=== PATIENT | male | born 1985 | race Caucasian/White ===

== ENCOUNTER 2021-05-17 12:15 | Outpatient (REF) | payer MEDICARE, SELFPAY ==
[2021-05-17 14:42] LABS: Alanine Aminotransferase 14 U/L (0-40); Albumin Level 4.5 g/dL (3.5-5.0); Alkaline Phosphatase 69 U/L (39-117); Anion Gap 12 (12-20); Aspartate Amino Transferase 17 U/L (5-37); Bilirubin Total 0.5 mg/dL (0.0-1.0); Blood Urea Nitrogen 12 mg/dL (9-16); Calcium 9.1 mg/dL (8.4-10.2); Carbon Dioxide 29 mmol/L (22-29); Chloride 104 mmol/L (96-108); Cholesterol 141 mg/dL; Estimated Glomerular Filt Rate > 60; Glucose Fasting 98 mg/dL (60-99); HDL Cholesterol 38 mg/dL; LDL Cholesterol Calculated 91 mg/dl; Potassium 4.2 mmol/L (3.3-5.1); Sodium 141 mmol/L (135-145); Total Protein 6.6 g/dL (6.5-8.0); Triglycerides 61 mg/dL
[2021-05-17 15:02] LABS: TSH reflex Free T4 1.24 uIU/mL (0.32-4.0)
[2021-05-17 15:04] LABS: Syphilis Screen Nonreactive (Nonreactive)
[2021-05-19 08:54] LABS: HBsAGNum1 0.16 S/CO (0.00-0.99); Hepatitis B Surface Antigen Negative (Negative); ~HepC Num1 0.08 S/CO (0.00-0.79); ~Hepatitis C Antibody Nonreactive (Nonreactive)
[2021-05-19 09:21] LABS: HBc Num1 0.08 S/CO (0.00-0.79); Hepatitis B Core Antibody Nonreactive (Nonreactive); ~Hepatitis B Surface Antibody REACTIVE (Nonreactive)
== END 2021-05-17 12:16 | disposition home or self-care (01) ==
LOC: HO.WFDLDS 12:15
PROVIDERS: Visit Provider Family Medicine
DX: Z00.00 Encounter for general adult medical examination without abnormal findings (principal); Z11.59 Encounter for screening for other viral diseases
CPT/HCPCS: 36415; 80053; 80061; 84443; 86704; 86706; 86780; 86803; 87340

== ENCOUNTER 2021-05-30 10:58 | Outpatient (RCR) | payer MEDICARE, SELFPAY | END 2021-07-18 07:33 | disposition home or self-care (01) | LOC: HO.PTWFD 10:58 | PROVIDERS: PCP Family Medicine; Visit Provider Family Medicine | DX: M54.50 Low back pain, unspecified (principal) | CPT/HCPCS: 97110; 97161; 97535 ==

== ENCOUNTER 2022-11-20 12:11 | Outpatient (REF) | payer OTHER, SELFPAY ==
[2022-11-20 14:04] LABS: MANUAL DIFF FLAG NO
[2022-11-20 14:16] LABS: Basophils Absolute Auto 0.1 X10*3/uL (0.0-0.2); Basophils Percent Auto 0.5 % (0-2); Eosinophils Absolute Auto 0.3 X10*3/uL (0.0-0.4); Eosinophils Percent Auto 2.6 % (0-4); Hemoglobin 13.4 g/dl (14.0-18.0); Imm Gran Abs Auto 0.12 X10*3/uL (0.00-0.03); Imm Gran Pct Auto 1.1 % (0.0-0.4); Lymphocytes Absolute Auto 2.6 X10*3/uL (1.2-4.9); Lymphocytes Percent Auto 24.1 % (20-40); Mean Corpuscular HGB Conc 31.9 g/dl (31.0-36.0); Mean Corpuscular Hemoglobin 26.9 pg (27.0-33.0); Mean Corpuscular Volume 84.2 fL (80.0-98.0); Mean Platelet Volume 10.4 fL (9.4-12.4); Monocytes Absolute Auto 0.8 X10*3/uL (0.1-1.2); Monocytes Percent Auto 7.1 % (2-11); Neutrophils Percent Auto 64.6 % (45-73); Platelet Count 289 X10*3/uL (160-400); Red Blood Count 4.99 X10*6/uL (4.60-5.80); Red Cell Distribution Width 13.6 % (11.0-16.0); White Blood Count 10.8 X10*3/uL (4.8-10.8)
[2022-11-20 14:20] LABS: Appearance Urine Cloudy; Color Urine Yellow; Glucose Urine UA Negative (Negative); Leukocyte Esterase Urine Negative (Negative); Nitrite Urine Negative (Negative); PH 8.5 (5.0-9.0); Specific Gravity - Urine 1.015 (1.005-1.025); Urine Blood Negative (Negative); Urine Ketones Negative (Negative); Urine Protein Negative (Neg-Trace)
[2022-11-20 14:26] LABS: Alanine Aminotransferase 33 U/L (0-40); Albumin Level 4.5 g/dL (3.5-5.0); Alkaline Phosphatase 69 U/L (39-117); Anion Gap 10 (12-20); Aspartate Amino Transferase 22 U/L (5-37); Bilirubin Total 0.7 mg/dL (0.0-1.0); Blood Urea Nitrogen 11 mg/dL (9-16); Calcium 9.2 mg/dL (8.4-10.2); Carbon Dioxide 29 mmol/L (22-29); Chloride 106 mmol/L (96-108); Cholesterol 138 mg/dL; Estimated Glomerular Filt Rate > 60; Glucose Fasting 78 mg/dL (60-99); HDL Cholesterol 44 mg/dL; LDL Cholesterol Calculated 73 mg/dl; Potassium 4.1 mmol/L (3.3-5.1); Sodium 141 mmol/L (135-145); Total Protein 6.7 g/dL (6.5-8.0); Triglycerides 107 mg/dL
[2022-11-20 14:43] LABS: TSH reflex Free T4 1.48 uIU/mL (0.32-4.0)
[2022-11-20 15:52] LABS: CT PCR NOT DETECTED (Not Detect.); NG PCR NOT DETECTED (Not Detect.)
[2022-11-21 04:13] LABS: Syphilis Screen Nonreactive (Nonreactive)
[2022-11-21 04:33] LABS: HBS Num1 71.65 mIU/mL (0-7.99); HBc Num1 0.12 S/CO (0.00-0.79); HBsAGNum1 0.39 S/CO (0.00-0.99); HIV AB/AG Nonreactive (Nonreactive); HIV Num 1 0.05 S/CO (0.00-0.99); Hepatitis B Core Antibody Nonreactive (Nonreactive); Hepatitis B Surface Antigen Negative (Negative); ~HepC Num1 0.15 S/CO (0.00-0.79); ~Hepatitis B Surface Antibody REACTIVE (Nonreactive); ~Hepatitis C Antibody Nonreactive (Nonreactive)
== END 2022-11-20 12:12 | disposition home or self-care (01) ==
LOC: HO.WFDLDS 12:11
PROVIDERS: Visit Provider Family Medicine
DX: Z00.00 Encounter for general adult medical examination without abnormal findings (principal); Z11.3 Encounter for screening for infections with a predominantly sexual mode of transmission
CPT/HCPCS: 0353U; 36415; 80053; 80061; 81003; 84443; 85025; 86704; 86706; 86780; 86803; 87340; 87389

== ENCOUNTER 2023-02-12 09:44 | Outpatient (AMB) | payer OTHER, SELFPAY ==
[2023-02-12 09:53] VITALS: BP 120/64; PULSE 63; RESP 12; TEMP 36.7; O2SAT 98; BMI 21.3
--- NOTE | 2023-02-12 09:53 | MHC.PC.OV ---
Vital Signs 02/12/23 09:53 Height 5 ft 11 in Weight 153 lb BMI 21.3 BP 120/64 Blood Pressure Location Lt brachial Position Sitting Respiration 12 Pulse 63 Pulse Source Pulse Oximeter Temp 98.1 F Temp Source Temporal Artery Scan Pulse Oximetry (%) 98 Oxygen Delivery Method Room Air Intake Visit Reasons: Pain in Right knee Intake Note: Patient states that before the knee pain he was having stiffening pains that felt like a zain horse and has been happening for 2-3 months. Patient states that before the knee pain his knees constantly cracked, and when he was horseplaying in [place] ([place]restling) he heard his knee crack and its been hurting since. Patient states that knee pain happened 4 days ago and hes been limping since. 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 Patient states he has labs he would also like to go over. Train Station Agent Required: No Accompanied by: Self / Same As Patient Allergies No Known Allergies Allergy (Verified 02/12/23 10:18) Tobacco use date assessed: 08/07/22 Dental Screening Dental Screen Date: 02/12/23 Did you have a dental visit in the last 12 months?: Yes Did you have a dental problem in the last 6 months where you did not have access to dental care?: No Was dental information given to patient?: Patient has dentist HPI HPI Comments History of Present Illness Details 37-year-old male presents with complaints of right knee pain. He notes that he was horse playing 4 days ago and his friend fell on his knee. He states he heard a cracking sound in the knee and immediately started experiencing pain. He notes he felt the knee popped in and out. He also notes he has been limping. He notes the pain intensifies with weight bearing. He denies tingling or numbness. He has been taking Tylenol without improvement. He also uses a knee brace with minimal improvement. He also reports persistent cramps to the posterior right knee for the past 2 months. 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 Mario Kruger, Noelle Collins, Scar Jay and colleagues, with an educational grecia from [employer]. Review of Systems Const Details: Const Denies chills, Denies fatigue, Denies fever(s), Denies headache(s) and Denies weakness ENT Denies dizziness and Denies headache(s) Card Denies chest pain, Denies lightheadedness, Denies dyspnea and Denies other (Palpitations) Resp Denies cough, Denies dyspnea, Denies wheezing and Denies other ( shortness of breath) GI Denies abdominal pain, Denies melena, Denies hematochezia, Denies change in bowel habits, Denies dyspepsia and Denies nausea Denies hematuria and Denies dysuria Musc Reports as per HPI Skin/Breast Denies rash, Denies unusual bruising and Denies wounds Neuro Reports abnormal gait, Denies dizziness, Denies headache(s), Denies memory loss, Denies numbness, Denies Sensory deficit (Neuro), Denies tingling and Denies weakness Psych Denies anxiety, Denies depression, Denies memory loss Endo Denies cold intolerance, Denies fatigue, Denies heat intolerance, Denies polydipsia and Denies polyuria Aller/Immun Denies wheezing Physical exam (Primary Care) Vital Signs: Last Vital Signs Temp 98.1 F 02/12/23 09:53 Pulse 63 02/12/23 09:53 Resp 12 02/12/23 09:53 BP 120/64 02/12/23 09:53 Pulse Ox 98 02/12/23 09:53 Oxygen Delivery Method Room Air 02/12/23 09:53 BMI result Body Mass Index 21.3 Tobacco/Smoking Status: Tobacco use Status Tobacco use date assessed 08/07/22 02/12/23 10:05 Patient Tobacco Use Status Former Tobacco user 02/12/23 10:05 Tobacco use type Cigar 02/12/23 10:05 e-Cigarette/Vaping Use Currently Using 02/12/23 10:05 Thrive Assessment: Date of Thrive Assessment Date Thrive assessed 12/06/21 02/12/23 10:05 Const Other: General: no acute distress and well developed Nutritional Appearance: well nourished Orientation/consciousness: patient oriented x3 HENMT Head: Yes normocephalic and Yes atraumatic Eyes General: appearance normal, both eyes and all related structures Pupils: Equal, round and reactive pupils present EOM: EOMs intact bilaterally Resp Effort & Inspection: normal respiratory effort Auscultation: clear to auscultation bilaterally Cardio Rate: regular rate Rhythm: regular rhythm Heart sounds: S1 normal heart sound present, S2 normal heart sound present, no gallops, no murmurs and no rubs GI Palpation (GI): No Abdominal aortic bruit present, Soft to palpation, nontender, No hepatosplenomegaly present and No Rebound tenderness present Auscultation: normal bowel sounds General: Yes no CVA tenderness Back/Spine/Pelvis Back: no CVA tenderness Cervical Spine: cervical ROM normal and No Cervical spine tenderness Thoracic/Lumbar Spine: thoraco-lumbar ROM normal, No pain with thoraco-lumbar ROM, No thoracic spinal tenderness and No lumbar spinal tenderness Extrem General: Yes normal to inspection, No edema and No calf tenderness Right patella tenderness with palpation and pressure Skin General: warm and dry. Normal skin color. Normal skin turgor Lesions: no lesions Rashes: no rashes Trauma: no lacerations or abrasions Wounds: no wounds Nails: normal Neuro General: patient oriented x3, gait normal and no focal neuro deficit Cranial nerves: Yes Equal, round and reactive pupils present Cognition (Neuro): normal cognition Gait exam (Neuro): Slightly unsteady gait Sensory Exam: No Sensory deficit (Neuro) Psych Appearance: grossly normal Affect: normal affect Attitude: cooperative Thought process: Normal thought process present Assessment and Plan Assessment & Plan (1) Right knee pain: Code(s): M25.561 - Pain in right knee Plan: Right patella tenderness with palpation and pressure Likely patellofemoral pain syndrome Naproxen ordered. Take as prescribed X-ray ordered Warm/cold compresses encouraged May continue to wear knee brace for walking Follow-up with worsening or new symptoms Verbalized understanding and agreed with treatment plan. (2) Cramps of right lower extremity: Code(s): R25.2 - Cramp and spasm Plan: Naproxen as prescribed Warm/cool compresses encouraged Labs ordered Return with worsening or new symptoms Verbalized understanding and agreed with treatment plan. Orders: Orders Basic Metabolic Panel Today R25.2 - Cramp and spasm Magnesium Today R25.2 - Cramp and spasm Complete Blood Count no Diff Today R25.2 - Cramp and spasm XR knee RT 2V Today M25.561 - Pain in right knee Medications: New naproxen 500 mg PO BID PRN 60 tabs 0RF pain 30 days Coding Level of Care Code Est Pt Level 3 (14851) Diagnoses Right knee pain M25.561 Cramps of right lower extremity R25.2 Time Spent (min) 25
== END 2023-02-12 10:42 | disposition home or self-care (01) ==
PROVIDERS: PCP Family Medicine; Visit Provider Nurse Practitioner Family
DX: M25.561 Pain in right knee (principal); R25.2 Cramp and spasm
CPT/HCPCS: 99213

== ENCOUNTER 2024-01-09 15:23 | Outpatient (AMB) | payer OTHER, SELFPAY ==
--- NOTE | 2024-01-09 15:29 | A.OFFPC_ITS ---
Vital Signs 01/09/24 15:30 Height 5 ft 11 in Weight 159 lb 6 oz BMI 22.2 BP 106/68 Blood Pressure Location Rt brachial Position Sitting Respiration 14 Pulse 71 Pulse Source Pulse Oximeter Temp 97 F Temp Source Temporal Artery Scan Pulse Oximetry (%) 99 Oxygen Delivery Method Room Air Intake Visit Reasons: PE Intake Note: Patient states that eczema has been getting worse band would like some type of cream prescribed. Electronic Train Control Technician Required: No Accompanied by: Self / Same As Patient Allergies No Known Allergies Allergy (Verified 01/09/24 15:40) Medication List - Last Reconciled 01/09/24 by Virgilio Sapp MD No Known Home Meds Tobacco use date assessed: 01/09/24 Dental Screening Dental Screen Date: 01/09/24 Did you have a dental visit in the last 12 months?: Yes Did you have a dental problem in the last 6 months where you did not have access to dental care?: No Was dental information given to patient?: Patient has dentist HPI PE HPI Details 38 y/o male presents for a CPE with f/u labs and health maintenance. No recent labs to review. Has complaints of eczema. Has complaints of cramps on back of his calf. 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 1. Little interest or pleasure in doing things: not at all 2. Feeling down, depressed, or hopeless: not at all 3. Trouble falling or staying asleep, or sleeping too much: not at all 4. Feeling tired or having little energy: not at all 5. Poor appetite or overeating: not at all 6. Feeling bad about yourself - or that you are a failure or have let yourself or your family down: not at all 7. Trouble concentrating on things, such as reading the newspaper or watching television: not at all 8. Moving or speaking so slowly that other people could have noticed. Or the opposite - being so fidgety or restless that you have been moving around a lot more than usual: not at all 9. Thoughts that you would be better off or of hurting yourself in some way: not at all Total score: 0 Source: Developed by Drs. Mario Kruger, Noelle Collins, Scar Jay and colleagues, with an educational grecia from [employer]. Thrive Questionnaire Date Thrive assessed: 01/09/24 I am a: Patient What is your living situation today?: I have a steady place to live Within the past 12 months, did the food you bought not last and you didn't have the money to get more?: Never true Within the past 12 months, did you worry whether your food would run out before you got money to buy more?: Never true Do you have trouble paying for medicines?: No Do you have trouble getting transportation to medical appointments?: No Do you have trouble paying your heating and electricity bill?: No Do you have trouble taking care of your child, family member or friend?: No Do you have trouble with day-to-day activities such as bathing, preparing meals, shopping, managing finances, etc.?: No Are you currently unemployed and looking for a job?: No Are you interested in more education?: No Please select the resources that you would like help with: None Currently or been in a relationship where the following occur: No concerns reported THRIVE Score: 0 AUDIT C Alcohol Use Questionnaire (AUDIT-C) 1. How often do you have a drink containing alcohol?: Monthly or less 2. How many drinks containing alcohol do you have on a typical day when you are drinking?: 1 or 2 3. How often do you have six or more drinks on one occasion?: Never Total Score: 1 JEFF-7 AMB Questionnaire JEFF-7 Date JEFF - 7 assessed: 01/09/24 Feeling nervous, anxious, or on edge: 0 = Not at all Not being able to stop or control worryin = Not at all Worrying too much about different things: 0 = Not at all Trouble relaxin = Not at all Being so restless that it is hard to sit still: 0 = Not at all Becoming easily annoyed or irritable: 0 = Not at all Feeling afraid as if something awful might happen: 0 = Not at all Total JEFF-7 score (0-4 normal; 5-9 mild; 10-14 moderate; 15-21 severe): 0 Source: Developed by Drs. Mario Kruger, Noelle Collins, Scar Jay and colleagues, with an educational grecia from [employer]. JEFF-7 Assessment Billing JEFF-7 Assessment Tool: JEFF-7 Assessment 87170 Review of Systems Const Denies chills, Denies fatigue, Denies fever(s), Denies headache(s) and Denies weakness Eyes Denies change in vision ENT Denies dizziness, Denies headache(s), Denies hearing loss, Denies nasal conges tion, Denies sinus pain, Denies sinus pressure and Denies sore throat Card Denies chest pain, Denies lightheadedness, Denies dyspnea and Denies other (palpitations) Resp Denies cough, Denies dyspnea and Denies wheezing GI Denies abdominal pain, Denies melena, Denies hematochezia, Denies change in bowel habits, Denies dyspepsia and Denies nausea Denies hematuria and Denies dysuria Musc Denies abnormal gait, Denies myalgias, Denies arthralgias, Denies numbness and Denies tingling Skin/Breast Denies rash, Denies unusual bruising and Denies wounds Neuro Denies abnormal gait, Denies dizziness, Denies headache(s), Denies memory loss, Denies numbness, Denies Sensory deficit (Neuro), Denies tingling and Denies weakness Psych Denies anxiety, Denies depression and Denies memory loss Endo Denies cold intolerance, Denies fatigue, Denies heat intolerance, Denies polydipsia and Denies polyuria Taj/Lymph Denies easy bleeding and Denies easy bruising Aller/Immun Denies wheezing Physical exam (Primary Care) Vital Signs: Last Vital Signs Temp 97 F 01/09/24 15:30 Pulse 71 01/09/24 15:30 Resp 14 01/09/24 15:30 BP 106/68 01/09/24 15:30 Pulse Ox 99 01/09/24 15:30 Oxygen Delivery Method Room Air 01/09/24 15:30 BMI result Body Mass Index 22.2 Tobacco/Smoking Status: Tobacco use Status Tobacco use date assessed 01/09/24 01/09/24 15:44 Patient Tobacco Use Status Former Tobacco user 01/09/24 15:44 Tobacco use type Cigar 01/09/24 15:44 e-Cigarette/Vaping Use Currently Using 01/09/24 15:44 PHQ-9: PHQ-9 Score PHQ-9: Total score 0 01/09/24 15:44 Thrive Assessment: Date of Thrive Assessment Date Thrive assessed 01/09/24 01/09/24 15:44 Currently or been in a relationship where the following occur: No concerns reported Const General: no acute distress, well developed, alert and awake Nutritional Appearance: well nourished Orientation/consciousness: patient oriented x3 HENMT Head: Yes normocephalic and Yes atraumatic Ears: hearing grossly normal bilaterally and TM's normal bilaterally General nose exam: Normal external nose present and Normal nares present Mouth: Normal oral and palatal mucosa present and moist mucous membranes Teeth and gingiva: dentition normal Throat: Yes posterior oropharynx normal Eyes General: appearance normal, both eyes and all related structures Pupils: Equal, round and reactive pupils present and Pupil accommodation reflex normal EOM: EOMs intact bilaterally Neck Neck: Yes normal visual inspection, Yes no lymphadenopathy and Yes trachea midline Thyroid: Thyroid normal Carotids: no bruits Lymphatic: no lymphadenopathy noted Chest Chest palpation & inspection: normal inspection of the chest Resp Effort & Inspection: normal respiratory effort Auscultation: clear to auscultation bilaterally Cardio Rate: regular rate Rhythm: regular rhythm Heart sounds: S1 normal heart sound present, S2 normal heart sound present, no gallops, no murmurs and no rubs Bruits: no abdominal aortic bruits and no carotid bruits GI Palpation (GI): No Abdominal aortic bruit present, Soft to palpation, nontender, No hepatosplenomegaly present and No Rebound tenderness present Auscultation: normal bowel sounds General: Yes no CVA tenderness Back/Spine/Pelvis Back: no CVA tenderness Cervical Spine: cervical ROM normal and No Cervical spine tenderness Thoracic/Lumbar Spine: thoraco-lumbar ROM normal, No pain with thoraco-lumbar ROM, No thoracic spinal tenderness and No lumbar spinal tenderness Skin Lesions: no lesions Rashes: no rashes Trauma: no lacerations or abrasions Wounds: no wounds Nails: normal Neuro General: patient oriented x3 Cranial nerves: Yes Equal, round and reactive pupils present Cognition (Neuro): normal cognition Gait exam (Neuro): Normal gait present Motor exam (neuro): 5/5 motor strength present throughout Sensory Exam: No Sensory deficit (Neuro) Deep tendon reflexes (DTR's): Right patellar reflex intensity grade: 2+ and Left patellar reflex intensity grade: 2+ Extrem General: Yes normal to inspection and No edema Psych Appearance: grossly normal Affect: normal affect Attitude: cooperative Thought process: Normal thought process present Assessment and Plan Assessment & Plan (1) Adult general medical exam: Code(s): Z00.00 - Encounter for general adult medical examination without abnormal findings Plan: 38-year-old?male?presents?for?complete?physical?exam Encouraged?healthy?diet?with?active?lifestyle?and?plenty?of?exercise (2) Eczema: Code(s): L30.9 - Dermatitis, unspecified Plan: Start?betamethasone?ointment?twice?a?day If?not?improving?will?refer?to?Dermatology (3) Leg cramp: Code(s): R25.2 - Cramp and spasm Plan: Check?labs Can?trial?magnesium?OTC (4) Back pain: Code(s): M54.9 - Dorsalgia, unspecified Plan: Right?low?back?pain. Check?lumbar?spine?film Trial?meloxicam Has?tried?physical?therapy?in?the?past Will?follow-up?in?about?a?month (5) Skin tag: Code(s): L91.8 - Other hypertrophic disorders of the skin Plan: Patient?can?return?in?about?a?month?for?cryotherapy. Orders: Orders XR lumbar spine 2-3V Today M54.9 - Dorsalgia, unspecified Comprehensive [place]. Panel Fast Today Z00.00 - Encounter for general adult medical examination without abnormal findings UA and rflx microscopic Today Z00.00 - Encounter for general adult medical examination without abnormal findings TSH reflex Free T4 Today Z00.00 - Encounter for general adult medical examination without abnormal findings HIV Ab/Ag Today Z11.3 - Encounter for screening for infections with a predominantly sexual mode of transmission Testosterone, Free/Total Today Z00.00 - Encounter for general adult medical examination without abnormal findings Complete Blood Count Auto Diff Today Z00.00 - Encounter for general adult medical examination without abnormal findings Lipid Panel Today Z00.00 - Encounter for general adult medical examination without abnormal findings Microalbumin, Random (w Creat) Today I10 - Essential (primary) hypertension CT NG by PCR Today Z11.3 - Encounter for screening for infections with a predominantly sexual mode of transmission Hepatitis B,C Profile Today Z11.3 - Encounter for screening for infections with a predominantly sexual mode of transmission T Spot TB Today Z11.1 - Encounter for screening for respiratory tuberculosis Medications: New meloxicam 15 mg PO DAILY 30 days 30 tabs 2RF betamethasone valerate 0.1% 1 appl topical BID 30 days PRN 60 grams 1RF skin irritation Coding Level of Care Code Est Pt Level 4 (09429) Diagnoses Adult general medical exam Z00.00 Eczema L30.9 Leg cramp R25.2 Back pain M54.9 Skin tag L91.8 Additional Codes JEFF-7 Assessment Billing - JEFF-7 Assessment Tool: JEFF-7 Assessment 52841 ([id number])
[2024-01-09 15:30] VITALS: BP 106/68; PULSE 71; RESP 14; TEMP 36.1; O2SAT 99; BMI 22.2
== END 2024-01-09 16:31 | disposition home or self-care (01) ==
PROVIDERS: PCP Family Medicine; Visit Provider Family Medicine
DX: Z00.00 Encounter for general adult medical examination without abnormal findings (principal); R25.2 Cramp and spasm; L30.9 Dermatitis, unspecified; M54.9 Dorsalgia, unspecified; L91.8 Other hypertrophic disorders of the skin
CPT/HCPCS: 99214; 99395

== ENCOUNTER 2024-02-06 11:27 | Outpatient (REF) | payer OTHER, SELFPAY ==
[2024-02-06 14:32] LABS: MANUAL DIFF FLAG NO
[2024-02-06 14:36] LABS: Basophils Absolute Auto 0.1 X10*3/uL (0.0-0.2); Basophils Percent Auto 0.5 % (0-2); Eosinophils Absolute Auto 0.2 X10*3/uL (0.0-0.4); Eosinophils Percent Auto 2.1 % (0-4); Hematocrit 42.4 % (42.0-52.0); Hemoglobin 13.6 g/dl (14.0-18.0); Imm Gran Abs Auto 0.03 X10*3/uL (0.00-0.03); Imm Gran Pct Auto 0.3 % (0.0-0.4); Lymphocytes Absolute Auto 1.6 X10*3/uL (1.2-4.9); Lymphocytes Percent Auto 16.4 % (20-40); Mean Corpuscular HGB Conc 32.1 g/dl (31.0-36.0); Mean Corpuscular Hemoglobin 27.3 pg (27.0-33.0); Mean Platelet Volume 10.3 fL (9.4-12.4); Monocytes Absolute Auto 0.7 X10*3/uL (0.1-1.2); Monocytes Percent Auto 7.1 % (2-11); Neutrophils Percent Auto 73.6 % (45-73); Platelet Count 307 X10*3/uL (160-400); Red Blood Count 4.99 X10*6/uL (4.60-5.80); Red Cell Distribution Width 13.4 % (11.0-16.0); White Blood Count 9.6 X10*3/uL (4.8-10.8)
[2024-02-06 14:49] LABS: Appearance Urine Clear; Color Urine Yellow; Glucose Urine UA Negative (Negative); Leukocyte Esterase Urine Negative (Negative); Nitrite Urine Negative (Negative); PH 7.5 (5.0-9.0); Urine Blood Negative (Negative); Urine Ketones Negative (Negative); Urine Protein Negative (Neg-Trace)
[2024-02-06 15:00] LABS: Alanine Aminotransferase 17 U/L (0-40); Albumin Level 4.5 g/dL (3.5-5.0); Alkaline Phosphatase 88 U/L (39-117); Anion Gap 12 (12-20); Aspartate Amino Transferase 20 U/L (5-37); Bilirubin Total 0.3 mg/dL (0.0-1.0); Blood Urea Nitrogen 10 mg/dL (9-16); Calcium 9.7 mg/dL (8.4-10.2); Carbon Dioxide 28 mmol/L (22-29); Chloride 106 mmol/L (96-108); Cholesterol 134 mg/dL (<200); Estimated Glomerular Filt Rate > 60; Glucose Fasting 110 mg/dL (60-99); Glucose Random 111 mg/dL (60-115); HDL Cholesterol 39 mg/dL (>40); LDL Cholesterol Calculated 60 mg/dL (<100); Magnesium 2.1 mg/dL (1.6-2.6); Potassium 3.9 mmol/L (3.3-5.1); Sodium 142 mmol/L (135-145); Total Protein 6.7 g/dL (6.5-8.0); Triglycerides 176 mg/dL (<150)
[2024-02-06 15:10] LABS: Creatinine Urine 34.03 mg/dL; Microalbumin Urine < 5.0 mg/L
[2024-02-06 15:12] LABS: TSH reflex Free T4 1.38 uIU/mL (0.32-4.0)
[2024-02-07 08:54] LABS: HBS Num1 67.79 mIU/mL (0-7.99); HBc Num1 0.14 S/CO (0.00-0.79); HBsAGNum1 0.37 S/CO (0.00-0.99); HIV AB/AG Nonreactive (Nonreactive); HIV Num 1 0.05 S/CO (0.00-0.99); Hepatitis B Core Antibody Nonreactive (Nonreactive); Hepatitis B Surface Antigen Negative (Negative); ~HepC Num1 0.12 S/CO (0.00-0.79); ~Hepatitis B Surface Antibody REACTIVE (Nonreactive); ~Hepatitis C Antibody Nonreactive (Nonreactive)
[2024-02-07 21:04] LABS: LDL Cholesterol Direct 76 mg/dL (<100)
[2024-02-09 08:53] LABS: TS Negative Control Passed; TS Panel A 2; TS Panel B 2; TS Positive Control Passed; TSpotTB Negative (Negative)
[2024-02-13 01:04] LABS: Testosterone, Free 69.4 pg/mL (35.0-155.0); Testosterone, Total 418 ng/dL (250-1100)
== END 2024-02-06 11:28 | disposition home or self-care (01) ==
LOC: HO.WFDLDS 11:27
PROVIDERS: Nurse Practitioner Family; Visit Provider Family Medicine
DX: Z00.00 Encounter for general adult medical examination without abnormal findings (principal); R25.2 Cramp and spasm; Z11.3 Encounter for screening for infections with a predominantly sexual mode of transmission; I10 Essential (primary) hypertension; Z11.1 Encounter for screening for respiratory tuberculosis; E78.6 Lipoprotein deficiency
CPT/HCPCS: 36415; 80048; 80053; 80061; 81003; 82043; 82570; 83721; 83735; 84402; 84403; 84443; 85025; 85027; 86481; 86704; 86706; 86803; 87340; 87389

== ENCOUNTER 2024-02-12 14:47 | Outpatient (AMB) | payer OTHER, SELFPAY ==
--- NOTE | 2024-02-12 14:55 | MHC.PC.OV ---
Vital Signs 02/12/24 14:58 Height 5 ft 11 in Weight 163 lb 4 oz BMI 22.8 BP 120/60 Blood Pressure Location Rt brachial Position Sitting Respiration 16 Pulse 89 Pulse Source Pulse Oximeter Temp 98 F Temp Source Tympanic Pulse Oximetry (%) 97 Oxygen Delivery Method Room Air Intake Visit Reasons: f/u chronic conditions, labs Intake Note: follow up for labs Allergies No Known Allergies Allergy (Verified 02/12/24 14:55) Tobacco use date assessed: 01/09/24 Dental Screening Dental Screen Date: 01/09/24 HPI f/u chronic conditions, labs HPI Details 38 y/o male presents to f/u chronic conditions. Had complaints of back pain, LE cramps. Also reviewing CPE-labs and cryotherapy skin tag. Labs were drawn 02/06/24. Reviewed labs with pt. Mildly low Hgb of 13.6. Elevated fasting glucose of 110. Triglycerides 176. TC 134. LDL 76. HDL 60. HDL low at 39. TSH 1.38. HPI Comments History of Present Illness Details Documentation assistance for Virgilio Sapp MD, was provided by Pablo Burns,? Ct Mri Technologist on 02/12/2024 at 3:18 PM EST. I, Dr. Sapp, have read, observed, and verified documentation.? 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 Mario Kruger, Noelle Collins, Scar Jay and colleagues, with an educational grecia from [employer]. Review of Systems Const Denies chills, Denies fatigue, Denies fever(s), Denies headache(s) and Denies weakness ENT Denies dizziness and Denies headache(s) Card Denies dyspnea Resp Denies cough, Denies dyspnea, Denies wheezing and Denies other (shortness of breath) Musc Denies numbness and Denies tingling Neuro Denies dizziness, Denies headache(s), Denies numbness, Denies tingling and Denies weakness Psych Denies anxiety and Denies depression Endo Denies fatigue Aller/Immun Denies wheezing Physical exam (Primary Care) Vital Signs: Last Vital Signs Temp 98 F 02/12/24 14:58 Pulse 89 02/12/24 14:58 Resp 16 02/12/24 14:58 BP 120/60 02/12/24 14:58 Pulse Ox 97 02/12/24 14:58 Oxygen Delivery Method Room Air 02/12/24 14:58 BMI result Body Mass Index 22.8 Tobacco/Smoking Status: Tobacco use Status Tobacco use date assessed 01/09/24 02/12/24 15:03 Patient Tobacco Use Status Former Tobacco user 02/12/24 15:03 Tobacco use type Cigar 02/12/24 15:03 e-Cigarette/Vaping Use Currently Using 02/12/24 15:03 Thrive Assessment: Date of Thrive Assessment Date Thrive assessed 01/09/24 02/12/24 15:03 Const General: well developed; No acute distress Nutritional Appearance: well nourished Orientation/consciousness: patient oriented x3 [facility] Head: Yes normocephalic and Yes atraumatic Eyes General: appearance normal, both eyes and all related structures Pupils: Equal, round and reactive pupils present EOM: EOMs intact bilaterally Resp Effort & Inspection: normal respiratory effort Skin Other: 0.25 cm skin tag at lower abdomen, just above pubic bone at midline Neuro General: patient oriented x3 and gait normal Cranial nerves: Yes Equal, round and reactive pupils present Psych Affect: normal affect Assessment and Plan Assessment & Plan (1) Back pain: Code(s): M54.9 - Dorsalgia, unspecified Plan: Ongoing?back?and?leg?pain. He?has?not?gotten?x-rays?done?yet?and?has?not?been?able?to?pick?up?his?medication?yet?but?will?do?so?today Advised?him?to?get?x-rays?done?and?we?can?follow-up?on?this?at?his?next?visit (2) Leg cramp: Code(s): R25.2 - Cramp and spasm Plan: As?above (3) Skin tag: Code(s): L91.8 - Other hypertrophic disorders of the skin Plan: 0.25?cm?skin?tag?at?lower?abdomen?just?above?pubic?bone?at?midline. Patient?had?had?2?skin?tags?in?this?region?and?had?previous?treatment?which?was?successful?but?1?of?them?has?returned. Applied?3?rounds?of?freeze/thaw?with?Histofreeze Patient?tolerated?the?procedure?well. Reminded?him?what?to?expect?over?the?next?few?days. Advised?him?to?watch?for?infection. 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
[2024-02-12 14:58] VITALS: BP 120/60; PULSE 89; RESP 16; TEMP 36.6; O2SAT 97; BMI 22.8
== END 2024-02-12 15:52 | disposition home or self-care (01) ==
PROVIDERS: PCP Family Medicine; Visit Provider Family Medicine
DX: M54.9 Dorsalgia, unspecified (principal); R25.2 Cramp and spasm; L91.8 Other hypertrophic disorders of the skin; R73.01 Impaired fasting glucose; E78.6 Lipoprotein deficiency
CPT/HCPCS: 99214

== ENCOUNTER 2024-07-30 11:08 | Outpatient (AMB) | payer OTHER, SELFPAY ==
--- NOTE | 2024-07-30 11:21 | A.OFFPC_ITS ---
Vital Signs 07/30/24 11:23 Height 5 ft 11 in Weight 163 lb BMI 22.7 BP 120/70 Blood Pressure Location Lt brachial Position Sitting Respiration 16 Pulse 71 Pulse Source Pulse Oximeter Temp 98.0 F Temp Source Oral Pulse Oximetry (%) 99 Oxygen Delivery Method Room Air Intake Visit Reasons: [facility] Intake Note: [facility] pt was seen for diverticulitis Allergies No Known Allergies Allergy (Verified 07/30/24 11:22) Tobacco use date assessed: 01/09/24 Dental Screening Dental Screen Date: 01/09/24 HPI [facility] HPI Details 38 y/o male presents to [facility] dis charge from [place]. Work up showed mild to moderate colitis. Improving. Has complaints of a bump on his legs along with eczema. 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 1. Little interest or pleasure in doing things: several days 2. Feeling down, depressed, or hopeless: several days 3. Trouble falling or staying asleep, or sleeping too much: several days 4. Feeling tired or having little energy: several days 5. Poor appetite or overeating: not at all 6. Feeling bad about yourself - or that you are a failure or have let yourself or your family down: not at all 7. Trouble concentrating on things, such as reading the newspaper or watching television: several days 8. Moving or speaking so slowly that other people could have noticed. Or the opposite - being so fidgety or restless that you have been moving around a lot more than usual: not at all 9. Thoughts that you would be better off or of hurting yourself in some way: not at all Total score: 5 Source: Developed by Drs. Mario Kruger, Noelle Collins, Scar Jay and colleagues, with an educational grecia from [employer]. 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 What is your living situation today?: I have a steady place to live Within the past 12 months, did the food you bought not last and you didn't have the money to get more?: Never true Within the past 12 months, did you worry whether your food would run out before you got money to buy more?: Never true Do you have trouble paying for medicines?: No Do you have trouble getting transportation to medical appointments?: No Do you have trouble paying your heating and electricity bill?: No Do you have trouble taking care of your child, family member or friend?: No Do you have trouble with day-to-day activities such as bathing, preparing meals, shopping, managing finances, etc.?: No Are you currently unemployed and looking for a job?: No Are you interested in more education?: No Please select the resources that you would like help with: None Currently or been in a relationship where the following occur: I choose not to answer THRIVE Score: 0 AUDIT C Alcohol Use Questionnaire (AUDIT-C) 1. How often do you have a drink containing alcohol?: Monthly or less 2. How many drinks containing alcohol do you have on a typical day when you are drinking?: 1 or 2 3. How often do you have six or more drinks on one occasion?: Never Total Score: 1 JEFF-7 AMB Questionnaire JEFF-7 Date JEFF - 7 assessed: 01/09/24 Feeling nervous, anxious, or on edge: 0 = Not at all Not being able to stop or control worryin = Not at all Worrying too much about different things: 0 = Not at all Trouble relaxin = Several days Being so restless that it is hard to sit still: 0 = Not at all Becoming easily annoyed or irritable: 0 = Not at all Feeling afraid as if something awful might happen: 0 = Not at all Total JEFF-7 score (0-4 normal; 5-9 mild; 10-14 moderate; 15-21 severe): 1 Source: Developed by Drs. Mario Kruger, Noelle Collins, Scar Jay and colleagues, with an educational grecia from [employer]. Review of Systems Const Denies chills, Denies fatigue, Denies fever(s), Denies headache(s) and Denies weakness ENT Denies dizziness and Denies headache(s) Card Denies dyspnea Resp Denies cough, Denies dyspnea, Denies wheezing and Denies other (shortness of breath) Musc Denies numbness and Denies tingling Neuro Denies dizziness, Denies headache(s), Denies numbness, Denies tingling and Denies weakness Psych Denies anxiety and Denies depression Endo Denies fatigue Aller/Immun Denies wheezing Physical exam (Primary Care) Vital Signs: Last Vital Signs Temp 98.0 F 07/30/24 11:23 Pulse 71 07/30/24 11:23 Resp 16 07/30/24 11:23 BP 120/70 07/30/24 11:23 Pulse Ox 99 07/30/24 11:23 Oxygen Delivery Method Room Air 07/30/24 11:23 BMI result Body Mass Index 22.7 Tobacco/Smoking Status: Tobacco use Status Tobacco use date assessed 01/09/24 07/30/24 11:28 Patient Tobacco Use Status Former Tobacco user 07/30/24 11:28 Tobacco use type Cigar 07/30/24 11:28 e-Cigarette/Vaping Use Currently Using 07/30/24 11:28 PHQ-9: PHQ-9 Score PHQ-9: Total score 5 07/30/24 11:43 Thrive Assessment: Date of Thrive Assessment Date Thrive assessed 01/09/24 07/30/24 11:28 Currently or been in a relationship where the following occur: I choose not to answer Const General: well developed; No acute distress Nutritional Appearance: well nourished Orientation/consciousness: patient oriented x3 HENMT Head: Yes normocephalic and Yes atraumatic Eyes General: appearance normal, both eyes and all related structures Pupils: Equal, round and reactive pupils present EOM: EOMs intact bilaterally Resp Effort & Inspection: normal respiratory effort Neuro General: patient oriented x3 and gait normal Cranial nerves: Yes Equal, round and reactive pupils present Psych Affect: normal affect Coding Level of Care Code Est Pt Level 4 (27780) Diagnoses Abdominal discomfort R10.9 Colitis K52.9 Neoplasm of uncertain behavior of skin D48.5 Chest pain R07.9 Assessment & Plan Assessment & Plan (1) Abdominal discomfort: Code(s): R10.9 - Unspecified abdominal pain Category: Medical Plan: ED?visit?for?abdominal?pain. CT?scan?shows?some?fat?stranding?and?likely?colitis. Patient?says?been?improving?but?still?has?abdominal?discomfort. Referred?to?Gastroenterology Encouraged?good?hydration?and?light,?regular?meals (2) Colitis: Code(s): K52.9 - Noninfective gastroenteritis and colitis, unspecified Category: Medical Plan: As?above (3) Neoplasm of uncertain behavior of skin: Code(s): D48.5 - Neoplasm of uncertain behavior of skin Category: Medical Plan: Likely?granulomas secondary?to?ingrown?hairs.??Can?not?rule?out?autoimmune?disorder?or?neoplastic? lesion. Patient?would?like?referral?to?Dermatology-referred (4) Chest pain: Code(s): R07.9 - Chest pain, unspecified Category: Medical Plan: Patient?has?some?chest?pain?on?lower?lateral?edges?of?sternum?bilaterally.??Hist ory?of?costochondritis. EKG: ?Sinus?bradycardia - 59?beats?per?minute,?normal?axis,?normal?intervals,?no?hypertrophy,?no?ST-T-wave ?changes. He?also?notes?some?epigastric?discomfort. Atypical?and?likely?has?some?gastritis?or?heartburn.??He?zeynep l?try?treating?symptoms?with?Tums. Likely?also?some?costochondritis Reassured?patient?this?does?not?appear?to?cardiac. Orders: Orders AMB EKG-In Office Today R07.9 - Chest pain, unspecified Comprehensive Met. Panel Today R10.9 - Unspecified abdominal pain Complete Blood Count Auto Diff Today R10.9 - Unspecified abdominal pain, Z00.00 - Encounter for general adult medical examination without abnormal findings Referrals Gastroenterology Referral K52.9 - Noninfective gastroenteritis and colitis, unspecified, R10.9 - Unspecified abdominal pain Dermatology Referral D48.5 - Neoplasm of uncertain behavior of skin Medications: Refilled betamethasone valerate 0.1% 1 appl topical BID 30 days PRN 60 grams 1RF skin irritation R10.9 - Unspecified abdominal pain
[2024-07-30 11:23] VITALS: BP 120/70; PULSE 71; RESP 16; TEMP 36.7; O2SAT 99; BMI 22.7
== END 2024-07-30 12:25 | disposition home or self-care (01) ==
PROVIDERS: PCP Family Medicine; Visit Provider Family Medicine
DX: R10.9 Unspecified abdominal pain (principal); K52.9 Noninfective gastroenteritis and colitis, unspecified; D48.5 Neoplasm of uncertain behavior of skin; R07.9 Chest pain, unspecified

== ENCOUNTER → 2024-07-30 11:08 | Outpatient (BNVA) | payer OTHER, SELFPAY | PROVIDERS: PCP Family Medicine; Visit Provider Family Medicine | DX: R07.9 Chest pain, unspecified (principal); R10.9 Unspecified abdominal pain; K52.9 Noninfective gastroenteritis and colitis, unspecified; D48.5 Neoplasm of uncertain behavior of skin | CPT/HCPCS: 93005; 99212 ==

== ENCOUNTER 2024-09-02 11:54 | Outpatient (AMB) | payer OTHER, SELFPAY ==
--- NOTE | 2024-09-02 11:59 | A.OFFPC_ITS ---
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 Recent substernal chest pain. Had went to the ED yesterday - chest xray and EKG unremarkable. EKG today normal. Notes he has been vaping and does have some ongoing anxiety. He reports back pain. Declines physical therapy today. HPI Comments History of Present Illness Details Documentation assistance for Virgilio Sapp MD, was provided by Pablo Burns,? Journeyman Powerhouse Operator on 09/02/2024 at 12:25 PM EST. I, Dr. Sapp, have read, observed, and verified documentation. ?? 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 Mario Kruger, Noelle Collins, Scar Jay and colleagues, with an educational grecia from [employer]. Review of Systems Const Denies chills, Denies fatigue, Denies fever(s), Denies headache(s) and Denies weakness ENT Denies dizziness and Denies headache(s) Card Denies dyspnea Resp Denies cough, Denies dyspnea, Denies wheezing and Denies other (shortness of breath) Musc Denies numbness and Denies tingling Neuro Denies dizziness, Denies headache(s), Denies numbness, Denies tingling and Denies weakness Psych Denies anxiety and Denies depression Endo Denies fatigue Aller/Immun Denies wheezing Physical exam (Primary Care) Vital Signs: Last Vital Signs Temp 97.9 F 09/02/24 12:04 Pulse 72 09/02/24 12:04 Resp 14 09/02/24 12:04 BP 120/70 09/02/24 12:04 Pulse Ox 98 09/02/24 12:04 Oxygen Delivery Method Room Air 09/02/24 12:04 BMI result Body Mass Index 22.2 Tobacco/Smoking Status: Tobacco use Status Tobacco use date assessed 01/09/24 09/02/24 12:00 Patient Tobacco Use Status Former Tobacco user 09/02/24 12:00 Tobacco use type Cigar 09/02/24 12:00 e-Cigarette/Vaping Use Currently Using 09/02/24 12:00 Thrive Assessment: Date of Thrive Assessment Date Thrive assessed 01/09/24 09/02/24 12:00 Const General: well developed; No acute distress Nutritional Appearance: well nourished Orientation/consciousness: patient oriented x3 HENMT Head: Yes normocephalic and Yes atraumatic Eyes General: appearance normal, both eyes and all related structures Pupils: Equal, round and reactive pupils present EOM: EOMs intact bilaterally Resp Effort & Inspection: normal respiratory effort Auscultation: clear to auscultation bilaterally Cardio Rate: regular rate Rhythm: regular rhythm Heart sounds: S1 normal heart sound present, S2 normal heart sound present, no gallops, no murmurs and no rubs Neuro General: patient oriented x3 and gait normal Cranial nerves: Yes Equal, round and reactive pupils present Psych Affect: normal affect Coding Level of Care Code Est Pt Level 5 (70285) Diagnoses Chest pain R07.9 Back pain M54.9 Anxiety F41.9 Vapes nicotine containing substance Z72.0 Assessment & Plan Assessment & Plan (1) Chest pain: Code(s): R07.9 - Chest pain, unspecified Category: Medical Plan: Recent?bout?of?substernal?chest?pain. 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 (3) Anxiety: Code(s): F41.9 - Anxiety disorder, unspecified Category: Medical Plan: Discussed?with?patient?that?a?common?thread?of?many?of?his pain?concerns are?worsened?or?related?to?his?anxiety. Will?try?buspirone Will?follow-up?3-4?weeks?to?see?if?this?is?helping (4) Vapes nicotine containing substance: Code(s): Z72.0 - Tobacco use Category: Social Hx Plan: Advised?discontinue?vaping?nicotine?and THC?products?as?well Plan Patient?notes?that?he?wants?to?gain?more?weight. Advised?him?th at?his?body?mass?index?is?in?the?middle?of?the?range?currently.??Advised?that?he ?work?on?increasing?muscle?mass?if?he?wants?to?gain?weight.??Increase?protein?an d?some?increase?calories. Advised?exercise Medications: New buspirone 5 mg PO BID 30 days 60 tabs 1RF cyclobenzaprine 10 mg PO BID 10 days PRN 20 tabs 0RF muscle spasm meloxicam 15 mg PO DAILY 30 days 30 tabs 2RF
[2024-09-02 12:04] VITALS: BP 120/70; PULSE 72; RESP 14; TEMP 36.6; O2SAT 98; BMI 22.2
--- OUTSIDE RECORDS SUMMARY | 2024-09-02 14:23 | XMS_ITS | Encounter Summary ---
Author Organization [employer] Address [address] [place] [address] Care Team Providers Care Seamstress Fitter Name Role Phone Unavailable Primary Care Provider Unavailabl e Encounter Details Date Type Department Care Team (Latest Contact Info) Description 11/29/2021 Abstract [facility] CONVERSIONS Dental, Provider, DDS Social History Tobacco Use Types Packs/Day Years Used Date Smoking Tobacco: Never Assessed Sex and Gender Information Value Date Recorded Sex Assigned at Male 04/30/2022 10:35 AM EDT Legal Sex Male 10:35 AM EDT Gender Identity Male 04/30/2022 10:35 AM EDT Sexual Orientation Straight 04/30/2022 10 :35 AM EDT documented as of this encounter Plan of Treatment Upcoming Encounters Date Type Department Care Team (Late st Contact Info) Description 09/17/2024 11:00 AM EDT Office Visit [facility] [address] [place] [id number] Ricarda Garcia BDS [address] [place] [address] 03/09/2025 11:00 AM EDT Office Visit [facility] [address] [place] [address] Amberly Landon [address] [place] [address] documented as of this encounter Visit Diagnoses Not on filedocumented in this encounter
--- OUTSIDE RECORDS SUMMARY | 2024-09-02 14:23 | XMS_ITS | Clinical Summary ---
Author Organization [employer] Address [address] [place] [address] [address] [place] [address] Care Team Providers Care Automobile Damage Field Appraiser Name Role Phone Unavailable Primary Care Provider Unavailabl e Allergies No known active allergies Medications ibuprofen 800 MG tablet Take 1 tablet by mouth every 8 (eight) hours. 04/06/2021 Active Active Problems No known active problems Encounters Date Type Department Care Team Description 09/02/2024 11:00 AM EST Office Visit [facility] [address] [place] [phone] Amberly Landon from Last 3 Months Social History Tobacco Use Types Packs/Day Years Used Date Smoking Tobacco: Former Cigarettes Smokeless Tobacco: Never Tobacco Cessation:Counseling Given: Not Answered Sex and Gender Information Value Date Recorded Sex Assigned at Male 04/30/2022 10:35 AM EDT Legal Sex Male 10:35 AM EDT Gender Identity Male 04/30/2022 10:35 AM EDT Sexual Orientation Straight 04/30/2022 10 :35 AM EDT Last Filed Vital Signs Vital Sign Reading Time Taken Comments Blood Pressure 124/74 09/02/2024 11:04 AM EST Pulse 80 09/02/2024 11:04 AM EST Temperature - - Respiratory Rate - - Oxygen Saturation - - Inhaled Oxygen Concentration - - Weight - - Height - - Body Mass Index - - Plan of Treatment Upcoming Encounters Date Type Department Care Team (Late st Contact Info) Description 09/17/2024 11:00 AM EDT Office Visit [facility] [address] [place] [phone] Ricarda Garcia BDS [address] [place] [phone] 03/09/2025 11:00 AM EDT Office Visit [facility] [address] [place] [address] Dipesh, Amberly [address] [place] [address] Health Maintenance Due Date Last Done Comments Depression Screening 1987 HIV Screening 1987 Lipid Panel 1987 SDOH Screening 1987 Alcohol/Substance Use Screening 1999 Family Planning (PISQ) 10/07/2002 Hepatitis C Screening 10/07/2005 DTaP/Tdap/Td Vaccines (1 - Tdap) 10/07/2006 Hepatitis B Vaccines (1 of 3 - 19+ 3-dose series) 10/07/2006 Dental Oral Exam 07/13/2023 01/09/2023, 11/29/2021 COVID-19 Vaccine ( season) 2024 Influenza Vaccine (#1) 2024 Dental X-Ray: Full Mouth 04/07/2024 04/06/2021 Dental X-Ray: Bitewings 01/23/2025 01/23/20 24, 01/09/2023, 11/29/2021 Dental Prophylaxis 03/06/2025 09/02/2024, 0 01/23/2024, 05/28/2023, Additional history exists Tobacco Screening 09/02/2025 09/02/2024 Zoster Vaccines (1 of 2) 10/07/2037 RSV Patients and Patients Aged 60 years or older (1 - 1-dose 75+ series) 10/07/2062 HIB Vaccines Aged Out No longer eligi ble based on patient's age to complete this topic HPV Vaccines Aged Out No longer eligi ble based on patient's age to complete this topic Hepatitis A Vaccines Aged Out No long er eligible based on patient's age to complete this topic IPV Vaccines Aged Out No longer eligi ble based on patient's age to complete this topic Meningococcal Vaccine Aged Out No surinder claribel eligible based on patient's age to complete this topic Pneumococcal Vaccine: Pediatrics (0 to 5 Years) and At-Risk Patients (6 to 49) Years) Aged Out No longer eligible based on patient's age to complete this topic RSV under 20 months Aged Out No longe r eligible based on patient's age to complete this topic Rotavirus Vaccines Aged Out No longer eligible based on patient's age to complete this topic Procedures Procedure Name Priority Date/Time Associated Diagnosis Comments PROPHYLAXIS - ADULT Routine 09/02/2024 1 1:00 AM EST CASE PRESENTATION, DETAILED AND EXTENSIVE TREATMENT PLANNING Routine 09/02/2024 11:00 AM EST 6 ROOT CANAL Routine 09/02/2024 12:00 AM EST 6 PFM CROWN Routine 09/02/2024 12:00 AM EST 3 O AMALGAM FILLING Routine 09/02/2024 1 2:00 AM EST 2 DO AMALGAM FILLING Routine 09/02/2024 12:00 AM EST BITEWINGS - 4 RADIOGRAPHIC IMAGES Routine 01/23/2024 1:00 PM EDT PERIODIC ORAL EVALUATION - ESTABLISHED PATIENT Routine 01/09/2023 4:00 PM EDT PANORAMIC RADIOGRAPHIC IMAGE Routine 04/06/2021 12:00 AM EDT from Last 3 Months or Most Recently Relevant to Health Maintenance Insurance [place] AD[place]
--- OUTSIDE RECORDS SUMMARY | 2024-09-02 14:23 | XMS_ITS | Encounter Summary ---
Author Organization [employer] Address [address] [place] [address] [address] [place] [address] Care Team Providers Care Screen Tender Name Role Phone Unavailable Primary Care Provider Unavailabl e Reason for Visit * Reason Comments Routine Cleaning Encounter Details Date Type Department Care Team (Late st Contact Info) Description 09/02/2024 11:00 AM EST Office Visit [facility] [address] [place] [address] Amberly Landon [address] [place] [address] Social History Tobacco Use Types Packs/Day Years Used Date Smoking Tobacco: Former Cigarettes Smokeless Tobacco: Never Sex and Gender Information Value Date Recorded Sex Assigned at Male 04/30/2022 10:35 AM EDT Legal Sex Male 10:35 AM EDT Gender Identity Male 04/30/2022 10:35 AM EDT Sexual Orientation Straight 04/30/2022 10 :35 AM EDT documented as of this encounter Last Filed Vital Signs Vital Sign Reading Time Taken Comments Blood Pressure 124/74 09/02/2024 11:04 AM EST Pulse 80 09/02/2024 11:04 AM EST Temperature - - Respiratory Rate - - Oxygen Saturation - - Inhaled Oxygen Concentration - - Weight - - Height - - Body Mass Index - - documented in this encounter Progress Notes * Amberly Landon - 09/02/2024 11:00 AM EST Patient ID: Damian Tran is a 38 y.o. male. Time Out: Date: 09/02/2024 Location: [facility] Tooth: all Procedure: Exam and Prophylaxis Verified the above with patient, public relations assistant, and provider. Confirmed via patient's chart, intraorally and by radiographs. It Teacher: not applicable Treatment Provided Dental procedures in this visit D9450 - CASE PRESENTATION, DETAILED AND EXTENSIVE TREATMENT PLANNING (Completed) Service provider: Amberly Landon Billing provider: Ricarda Garcia BDS D1110 - PROPHYLAXIS - ADULT (Completed) Service provider: Amberly Landon Billing provider: Ricarda Garcia BDS Instruments Used: Hand Scalers and Prophy angle Calculus: Light Plaque: Light-mod Stain: Moderate Bleeding: Moderate Gingiva: inflamed OH: Poor OCS: neg findings HNE: neg findings Oral hygiene instructions provided to patient including brushing technique and flossing. Recommendations: Floss daily Recall Frequency: 6 mo NV: Hygienist: Amberly Landon RDH documented in this encounter Plan of Treatment Upcoming Encounters Date Type Department Care Team (Late st Contact Info) Description 09/17/2024 11:00 AM EDT Office Visit [facility] [address] [place] [phone] Ricarda Garcia BDS [address] [place] [phone] 03/09/2025 11:00 AM EDT Office Visit [facility] [address] [place] [address] Amberly Landon [address] [place] [phone] documented as of this encounter Procedures Procedure Name Priority Date/Time Associated Diagnosis Comments PROPHYLAXIS - ADULT Routine 09/02/2024 1 1:00 AM EST CASE PRESENTATION, DETAILED AND EXTENSIVE TREATMENT PLANNING Routine 09/02/2024 11:00 AM EST documented in this encounter Visit Diagnoses Not on filedocumented in this encounter
== END 2024-09-02 12:40 | disposition home or self-care (01) ==
LOC: HO.HMCFM 11:54
PROVIDERS: PCP Family Medicine; Visit Provider Family Medicine
DX: R07.9 Chest pain, unspecified (principal); M54.9 Dorsalgia, unspecified; F41.9 Anxiety disorder, unspecified; Z72.0 Tobacco use

== ENCOUNTER → 2024-09-02 11:54 | Outpatient (BNVA) | payer OTHER, SELFPAY | PROVIDERS: PCP Family Medicine; Visit Provider Family Medicine | DX: R07.9 Chest pain, unspecified (principal); M54.9 Dorsalgia, unspecified; F41.9 Anxiety disorder, unspecified; Z72.0 Tobacco use | CPT/HCPCS: 93005; 99212 ==

== ENCOUNTER 2024-09-24 15:35 | Outpatient (AMB) | payer OTHER, SELFPAY ==
--- NOTE | 2024-09-24 15:52 | MHC.PC.OV ---
Vital Signs 09/24/24 15:57 Height 5 ft 11 in Weight 159 lb 4 oz BMI 22.2 BP 120/70 Blood Pressure Location Rt brachial Position Sitting Respiration 14 Pulse 78 Pulse Source Pulse Oximeter Temp 98.8 F Temp Source Oral Pulse Oximetry (%) 96 Oxygen Delivery Method Room Air Intake Visit Reasons: f/u anxiety Intake Note: patient is scheduled for anxiety follow up Fluid Designer Required: No Allergies No Known Allergies Allergy (Verified 09/24/24 15:53) Tobacco use date assessed: 01/09/24 Dental Screening Dental Screen Date: 01/09/24 HPI f/u anxiety HPI Details 38 y/o male presents to f/u anxiety. Had started him on buspirone. Had recommended him to stop vaping last office visit. He notes he has trialed buspirone 4-5 times. He is unsure how he feels about it yet but he notes he is willing to try again. He denies any adverse effects, did not notice much improvement. He reports decreased sex drive. PHQ- 5, JEFF-7 4 today. He had trialed stopping vaping. He did not feel like it helped with his chest pain. 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 1. Little interest or pleasure in doing things: several days 2. Feeling down, depressed, or hopeless: not at all 3. Trouble falling or staying asleep, or sleeping too much: several days 4. Feeling tired or having little energy: more than half the days 5. Poor appetite or overeating: several days 6. Feeling bad about yourself - or that you are a failure or have let yourself or your family down: not at all 7. Trouble concentrating on things, such as reading the newspaper or watching television: not at all 8. Moving or speaking so slowly that other people could have noticed. Or the opposite - being so fidgety or restless that you have been moving around a lot more than usual: not at all 9. Thoughts that you would be better off or of hurting yourself in some way: not at all Total score: 5 Depression Screening Interpretation: Positive Depression Screening Done: Yes 34538 - PHQ-9 Billing: Yes Source: Developed by Drs. Mario Kruger, Noelle Collins, Scar Jay and colleagues, with an educational grecia from [employer]. Thrive Questionnaire Date Thrive assessed: 09/24/24 I am a: Parent/Caregiver What is your living situation today?: I have a steady place to live Within the past 12 months, did the food you bought not last and you didn't have the money to get more?: Never true Within the past 12 months, did you worry whether your food would run out before you got money to buy more?: Never true Do you have trouble paying for medicines?: No Do you have trouble getting transportation to medical appointments?: No Do you have trouble paying your heating and electricity bill?: No Do you have trouble taking care of your child, family member or friend?: No Do you have trouble with day-to-day activities such as bathing, preparing meals, shopping, managing finances, etc.?: No Are you currently unemployed and looking for a job?: No Are you interested in more education?: No Please select the resources that you would like help with: None Currently or been in a relationship where the following occur: I choose not to answer THRIVE Score: 0 AUDIT C Alcohol Use Questionnaire (AUDIT-C) 1. How often do you have a drink containing alcohol?: 2-4 times a month 2. How many drinks containing alcohol do you have on a typical day when you are drinking?: 1 or 2 3. How often do you have six or more drinks on one occasion?: Never Total Score: 2 Score Reviewed/Action Taken: Yes JEFF-7 AMB Questionnaire JEFF-7 Date JEFF - 7 assessed: 09/24/24 Feeling nervous, anxious, or on edge: 0 = Not at all Not being able to stop or control worryin = Not at all Worrying too much about different things: 1 = Several days Trouble relaxin = Nearly every day Being so restless that it is hard to sit still: 0 = Not at all Becoming easily annoyed or irritable: 0 = Not at all Feeling afraid as if something awful might happen: 0 = Not at all Total JEFF-7 score (0-4 normal; 5-9 mild; 10-14 moderate; 15-21 severe): 4 Source: Developed by Drs. Mario Kruger, Noelle Collins, Scar Jay and colleagues, with an educational grecia from [employer]. JEFF-7 Assessment Billing JEFF-7 Assessment Tool: JEFF-7 Assessment 73558 Physical exam (Primary Care) Vital Signs: Last Vital Signs Temp 98.8 F 09/24/24 15:57 Pulse 78 09/24/24 15:57 Resp 14 09/24/24 15:57 BP 120/70 09/24/24 15:57 Pulse Ox 96 09/24/24 15:57 Oxygen Delivery Method Room Air 09/24/24 15:57 BMI result Body Mass Index 22.2 Tobacco/Smoking Status: Tobacco use Status Tobacco use date assessed 01/09/24 09/24/24 15:54 Patient Tobacco Use Status Former Tobacco user 09/24/24 15:54 Tobacco use type Cigar 09/24/24 15:54 e-Cigarette/Vaping Use Currently Using 09/24/24 15:54 PHQ-9: PHQ-9 Score PHQ-9: Total score 5 09/24/24 16:02 Depression Screening Interpretation: Positive Thrive Assessment: Date of Thrive Assessment Date Thrive assessed 09/24/24 09/24/24 16:01 Currently or been in a relationship where the following occur: I choose not to answer Coding Level of Care Code Est Pt Level 4 (75403) Diagnoses Anxiety F41.9 Vapes nicotine containing substance Z72.0 Decreased libido R68.82 Additional Codes JEFF-7 Assessment Billing - JEFF-7 Assessment Tool: JEFF-7 Assessment 91259 ([id number]) PHQ-9 - 91381 - PHQ-9 Billing: Yes ([id number]) Assessment & Plan Assessment & Plan (1) Anxiety: Code(s): F41.9 - Anxiety disorder, unspecified Category: Medical Plan: Ongoing?anxiety Patient?tried?buspirone?5?mg?tablets about?4?times?but?did?not?notice?much?improvement. Also?did?not?notice?any?adverse?effects. Encouraged?him?to?try?to?take?this?regularly?twice?a?day. Plan?is?to?follow-up?to?see?if?this?is?helping?and?increase?the?dose?if?needed. (2) Vapes nicotine containing substance: Code(s): Z72.0 - Tobacco use Category: Social Hx Plan: Patient?had?tried?to?stop?vaping?to?see?if?this?helped?with?chest?pain. He?did?not?feel?that?it?helped (3) Decreased libido: Code(s): R68.82 - Decreased libido Category: Medical Plan: Patient?notices?decreased?libido He?would?like?testosterone?level?checked.??Will?do?so. Decreased?libido?may?be?secondary?to?vaping?THC Will?review?with?patient?at?next?visit Orders: Orders Basic Metabolic Panel Today R68.82 - Decreased libido, Z00.00 - Encounter for general adult medical examination without abnormal findings Testosterone, Free/Total Today R68.82 - Decreased libido
[2024-09-24 15:57] VITALS: BP 120/70; PULSE 78; RESP 14; TEMP 37.1; O2SAT 96; BMI 22.2
--- OUTSIDE RECORDS SUMMARY | 2024-09-24 19:06 | XMS_ITS | Encounter Summary ---
Author Organization [employer] Address [address] [place] [address] [address] [place] [address] Care Team Providers Care Lens Block Gauger Name Role Phone Unavailable Primary Care Provider Unavailabl e Reason for Visit * Reason Comments Routine Cleaning Encounter Details Date Type Department Care Team (Late st Contact Info) Description 09/02/2024 11:00 AM EST Office Visit [facility] [address] [place] [address] Amberly Landon [address] [place] [address] Social History Tobacco Use Types Packs/Day Years [...] y.o. male. Time Out: Date: 09/02/2024 Location: [facility] Tooth: all Procedure: Exam and Prophylaxis Verified the above with patient, congressional assistant, and provider. Confirmed via patient's chart, intraorally and by radiographs. Car Worker: not applicable Treatment Provided Dental procedures in [...] 6 mo NV: Hygienist: Amberly Landon RDH Cosigned by Ricarda Garcia BDS at 09/02/2024 4:23 PM EST documented in this encounter Plan of Treatment Upcoming Encounters Date Type Department Care Team (Late st Contact Info) Description 03/09/2025 11:00 AM EDT Office Visit [facility] [address] [place] [phone] Amberly Landon [address] [place] [phone] documented as of this encounter Procedures Procedure Name Priority Date/Time Associated Diagnosis Comments PROPHYLAXIS - ADULT Routine 09/02/2024 1 1:00 AM EST CASE PRESENTATION, DETAILED AND EXTENSIVE TREATMENT PLANNING Routine 09/02/2024 11:00 AM EST documented in this encounter Visit Diagnoses Not on filedocumented in this encounter
--- OUTSIDE RECORDS SUMMARY | 2024-09-24 19:06 | XMS_ITS | Clinical Summary ---
Author Organization [employer] Address [address] [place] [address] [address] [place] [address] Care Team Providers Care Tag Marker Name Role Phone Unavailable Primary Care Provider Unavailabl e Allergies No known active allergies Medications ibuprofen 800 MG tablet Take 1 tablet by mouth every 8 (eight) hours. 04/06/2021 Active Active Problems No known active problems Encounters Date Type Department Care Team Description 09/23/2024 Telephone [facility] [address] [place] [phone] Ricarda Garcia BDS 09/02/2024 11:00 AM EST Office Visit [facility] [address] [place] [address] [phone] Amberly Landon from Last 3 Months Social [...] Description 03/09/2025 11:00 AM EDT Office Visit [facility] [address] [place] [address] Dipesh Amberly [address] [place], [place] [phone] Health Maintenance Due Date Last Done Comments Depression Screening 1987 HIV Screening 1987 Lipid Panel 1987 SDOH Screening 1987 Alcohol/Substance Use Screening 1999 Family Planning (PISQ) 10/07/2002 Hepatitis C Screening 10/07/2005 DTaP/Tdap/Td Vaccines (1 - Tdap) 10/07/2006 Hepatitis B Vaccines (1 of 3 - 19+ 3-dose series) 10/07/2006 Dental Oral Exam 07/13/2023 01/09/2023, 11/29/2021 COVID-19 Vaccine (1 - 2023- season) 2024 Influenza Vaccine (#1) 2024 Dental [...] Most Recently Relevant to Health Maintenance Insurance 1 [place] [address] D[facility] MEDICAID STAND ADULT [address] [place] [id number] [address] [place] [address] [address] [place] [address]
--- OUTSIDE RECORDS SUMMARY | 2024-09-24 19:06 | XMS_ITS | Encounter Summary ---
Author Organization [employer] Address [address] [place] [address] [address] [place] [address] Care Team Providers Care Embossing Press Operator Apprentice Name Role Phone Unavailable Primary Care Provider Unavailabl e Encounter Details Date Type Department Care Team (Late st Contact Info) Description 09/23/2024 Telephone [facility] [address] [place] [address] [phone] Ricarda Garcia BDS [address] [place], [place] [phone] Social History Tobacco Use Types Packs/Day Years Used Date Smoking Tobacco: Former Cigarettes Smokeless Tobacco: Never Sex and Gender Information Value Date Recorded Sex Assigned at Male 04/30/2022 10:35 AM EDT Legal Sex Male 10:35 AM EDT Gender Identity Male 04/30/2022 10:35 AM EDT Sexual Orientation Straight 04/30/2022 10 :35 AM EDT documented as of this encounter Miscellaneous Notes * Telephone Encounter - Kyra Newman - 09/23/2024 11:25 AM EDT Called patient to schedule apt for wax try-in. There was no answer voicemail was left. If and when patient calls back please let me know. documented in this encounter Plan of Treatment Upcoming Encounters Date Type Department Care Team (Late st Contact Info) Description 03/09/2025 11:00 AM EDT Office Visit [facility] [address] [place] [address] [phone] Amberly Landon [address] [place] [address] documented as of this encounter Visit Diagnoses Not on filedocumented in this encounter
--- OUTSIDE RECORDS SUMMARY | 2024-09-24 19:06 | XMS_ITS | Encounter Summary ---
Author Organization [employer] Address [address] [place] [address] [address] [place] [address] Care Team Providers Care Sponge Press Operator Name Role Phone Unavailable Primary Care Provider Unavailabl e Encounter Details Date Type Department Care Team (Latest Contact Info) Description 11/29/2021 Abstract [facility] CONVERSIONS Dental, Provider, DDS Social History Tobacco [...] Description 03/09/2025 11:00 AM EDT Office Visit [facility] [address] [place] [address] Amberly Landon [address] [place], [place] [phone] documented as of this encounter Visit Diagnoses Not on filedocumented in this encounter
--- OUTSIDE RECORDS SUMMARY | 2024-09-24 19:06 | XMS_ITS | Encounter Summary ---
Author Organization [employer] Address [address] [place] [address] [address] [place] [address] Care Team Providers Care Industrial Security Analyst Name Role Phone Unavailable Primary Care Provider Unavailabl e Reason for Visit * Reason Comments Filling Encounter Details Date Type Department Care Team (Late st Contact Info) Description 03/11/2024 3:00 PM EDT Office Visit [facility] [address] [place] [phone] Ricarda Garcia BDS [address] [place] [address] Social History Tobacco Use Types Packs/Day Years [...] Sign Reading Time Taken Comments Blood Pressure 117/77 03/11/2024 3:15 PM EDT Pulse 71 03/11/2024 3:15 PM EDT Temperature - - Respiratory Rate - - Oxygen Saturation - - Inhaled Oxygen Concentration - - Weight - - Height - - Body Mass Index - - documented in this encounter Progress Notes * Ricarda Garcia BDS - 03/11/2024 3:00 PM EDT Images from the original note were not included. Patient seen composite religion on tooth #21. Medical History Reviewed. Today's treatment reason- Existing religion with poor marginal integrity, Caries noted with explorer, recurrent caries noted, Decay present on radiograph. Decay excavated and tooth restored using matrix band/mylar strip and wedges as needed. Cavity Cleanser-CHX. Desensitizer - Gluma. Base-Ionosit. Etch tooth - Yes. Miner-i-bond. Composite material - PulpDent Bioactive, Silvia Janet. Vitapan classical A3.5. Contoured, occlusion checked and adjusted, established proximal contacts, finished, polished. Patient made aware of post-op sensitivity, patient understood and satisfied. documented in this encounter Plan of Treatment Upcoming Encounters Date Type Department Care Team (Late st Contact Info) Description 03/09/2025 11:00 AM EDT Office Visit [facility] [address] [place] [address] [phone] Amberly Landon [address] [place] [address] [phone] Scheduled Orders Name Type Priority Associated Diagnoses Orde r Schedule 10 DL 10 DL RESIN-BASED COMPOSITE - 2 SURFACES, ANTERIOR Dental Routine [address] arting 03/11/2024 documented as of this encounter Procedures Procedure Name Priority Date/Time Associated Diagnosis Comments DIGITAL SCAN FOR DENTURES Routine 03/11/2024 3:00 PM EDT 21 MB RESIN-BASED COMPOSITE - 2 SURF, POSTERIOR Routine 03/11/2024 3:00 PM EDT CASE PRESENTATION, DETAILED AND EXTENSIVE TREATMENT PLANNING Routine 03/11/2024 3:00 PM EDT documented in this encounter Visit Diagnoses Not on filedocumented in this encounter
== END 2024-09-24 16:15 | disposition home or self-care (01) ==
LOC: HO.HMCFM 15:35
PROVIDERS: PCP Family Medicine; Visit Provider Family Medicine
DX: F41.9 Anxiety disorder, unspecified (principal); Z72.0 Tobacco use; R68.82 Decreased libido

== ENCOUNTER → 2024-09-24 15:35 | Outpatient (BNVA) | payer OTHER, SELFPAY | PROVIDERS: PCP Family Medicine; Visit Provider Family Medicine | DX: F41.9 Anxiety disorder, unspecified (principal); R68.82 Decreased libido; Z72.0 Tobacco use | CPT/HCPCS: 96127; 99212 ==

== ENCOUNTER 2025-01-26 15:47 | Outpatient (AMB) | payer OTHER, SELFPAY ==
--- NOTE | 2025-01-26 16:01 | MHC.PC.OV ---
Vital Signs 01/26/25 16:04 Height 5 ft 11 in Weight 160 lb 6 oz BMI 22.4 BP 110/70 Blood Pressure Location Rt brachial Position Sitting Respiration 14 Pulse 73 Pulse Source Pulse Oximeter Temp 97.9 F Temp Source Oral Pulse Oximetry (%) 98 Oxygen Delivery Method Room Air Intake Visit Reasons: back pain Intake Note: patient is scheduled to rule out kidney stones he also states he has been urinating blood Superintendent Logging Required: No Allergies No Known Allergies Allergy (Verified 01/26/25 16:02) Tobacco use date assessed: 01/09/24 Dental Screening Dental Screen Date: 01/09/24 HPI back pain HPI Details 39 y/o male presents today with complaints of back pain. Pt also reports hematuria. He reports he has had stones in the past. Has been taking ibuprofen for pain relief. 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 Current occupational exposures/hazards: Yes Cognitive needs: No Hearing needs: No Vision needs: No Questionnaire Thrive Questionnaire Date Thrive assessed: 07/30/24 I am a: Parent/Caregiver What is your living situation today?: I have a steady place to live Within the past 12 months, did the food you bought not last and you didn't have the money to get more?: Never true Within the past 12 months, did you worry whether your food would run out before you got money to buy more?: Never true Do you have trouble paying for medicines?: No Do you have trouble getting transportation to medical appointments?: No Do you have trouble paying your heating and electricity bill?: No Do you have trouble taking care of your child, family member or friend?: No Do you have trouble with day-to-day activities such as bathing, preparing meals, shopping, managing finances, etc.?: No Are you currently unemployed and looking for a job?: No Are you interested in more education?: No Please select the resources that you would like help with: None Currently or been in a relationship where the following occur: I choose not to answer THRIVE Score: 0 JEFF-7 AMB Questionnaire JEFF-7 Date JEFF - 7 assessed: 09/24/24 Source: Developed by Drs. Mario Kruger, Noelle Collins, Scar Jay and colleagues, with an educational grecia from [employer]. Review of Systems Const Denies chills, Denies fatigue, Denies fever(s), Denies headache(s) and Denies weakness ENT Denies dizziness and Denies headache(s) Card Denies dyspnea Resp Denies cough, Denies dyspnea, Denies wheezing and Denies other (shortness of breath) Musc Reports back pain, Denies numbness and Denies tingling Neuro Denies dizziness, Denies headache(s), Denies numbness, Denies tingling and Denies weakness Psych Denies anxiety and Denies depression Endo Denies fatigue Aller/Immun Denies wheezing Physical exam (Primary Care) Vital Signs: Last Vital Signs Temp 97.9 F 01/26/25 16:04 Pulse 73 01/26/25 16:04 Resp 14 01/26/25 16:04 BP 110/70 01/26/25 16:04 Pulse Ox 98 01/26/25 16:04 Oxygen Delivery Method Room Air 01/26/25 16:04 BMI result Body Mass Index 22.4 Tobacco/Smoking Status: Tobacco use Status Tobacco use date assessed 01/09/24 01/26/25 16:08 Patient Tobacco Use Status Former Tobacco user 01/26/25 16:08 Tobacco use type Cigar 01/26/25 16:08 e-Cigarette/Vaping Use Currently Using 01/26/25 16:08 Thrive Assessment: Date of Thrive Assessment Date Thrive assessed 07/30/24 01/26/25 16:08 Currently or been in a relationship where the following occur: I choose not to answer Const General: well developed; No acute distress Nutritional Appearance: well nourished Orientation/consciousness: patient oriented x3 HENMT Head: Yes normocephalic and Yes atraumatic Eyes General: appearance normal, both eyes and all related structures Pupils: Equal, round and reactive pupils present EOM: EOMs intact bilaterally Resp Effort & Inspection: normal respiratory effort Auscultation: clear to auscultation bilaterally Cardio Rate: regular rate Rhythm: regular rhythm Heart sounds: S1 normal heart sound present, S2 normal heart sound present, no gallops, no murmurs and no rubs Neuro General: patient oriented x3 and gait normal Cranial nerves: Yes Equal, round and reactive pupils present Psych Affect: normal affect Coding Level of Care Code Est Pt Level 4 (57499) Diagnoses Hematuria R31.9 Back pain M54.9 History of kidney stones Z87.442 Skin tag L91.8 Eczema L30.9 Assessment & Plan Assessment & Plan (1) Hematuria: Code(s): R31.9 - Hematuria, unspecified Category: Medical (2) Back pain: Code(s): M54.9 - Dorsalgia, unspecified Category: Medical (3) History of kidney stones: Code(s): Z87.442 - Personal history of urinary calculi Category: Medical (4) Skin tag: Code(s): L91.8 - Other hypertrophic disorders of the skin Category: Medical (5) Eczema: Code(s): L30.9 - Dermatitis, unspecified Category: Medical Plan Recurrent back pain with hematuria and radiation of pain into testicle. History of nephrolithiasis Likely recurrent stones. Continue meloxicam and tamsulosin and increase hydration. Referred to urology Ongoing eczema on shins Betamethasone has helped but he has run out of medication. Refilled medication Recurrent large skin tag which was only partially responsive to cryotherapy. Referred to Dermatology Orders: Referrals Dermatology Referral L91.8 - Other hypertrophic disorders of the skin Urology Referral R31.9 - Hematuria, unspecified Medications: New tamsulosin 0.4 mg PO BEDTIME 30 caps 1RF 30 days Refilled meloxicam 15 mg PO DAILY 30 tabs 2RF 30 days betamethasone valerate 0.1% 1 appl topical BID PRN 60 grams 1RF skin irritation 30 days R10.9 - Unspecified abdominal pain
[2025-01-26 16:04] VITALS: BP 110/70; PULSE 73; RESP 14; TEMP 36.6; O2SAT 98; BMI 22.4
--- OUTSIDE RECORDS SUMMARY | 2025-01-26 16:29 | XMS_ITS | Clinical Summary ---
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 04/06/2021 Active Active Problems No known active problems Encounters Date Type Department Care Team Description 11/18/2024 1:00 PM EDT Office Visit [facility] [address] [place] [phone] [place], Deviprasad, BDS Partially edentulous mandible, unspecified edentulism class (Primary Dx); Partially edentulous maxilla, unspecified edentulism class 11/02/2024 1:30 PM EDT Office Visit [facility] [address] [place] [phone] [place], Deviprasad, BDS from Last 3 Months Social History Tobacco [...] Description 03/09/2025 11:00 AM EDT Office Visit [facility] [address] [place] [address] Dipesh Amberly [address] [place] [address] Health Maintenance Due Date Last Done Comments Depression Screening 1987 HIV Screening 1987 Lipid Panel 1987 SDOH Screening 1987 Disability Screening 1987 Alcohol/Substance Use Screening 1999 Family Planning (PISQ) 10/07/2002 HPV Vaccines (1 - Male 3-dose series) 10/07/2002 Hepatitis C Screening 10/07/2005 DTaP/Tdap/Td Vaccines (1 - Tdap) 10/07/2006 Hepatitis B Vaccines (1 of 3 - 19+ 3-dose series) 10/07/2006 Dental Oral Exam 07/13/2023 01/09/2023, 11/29/2021 COVID-19 Vaccine (1 - 2023- season) 2024 Dental X-Ray: Full Mouth 04/07/2024 04/06/2021 Dental X-Ray: Bitewings 01/23/2025 01/23/20 24, 01/09/2023, 11/29/2021 Influenza Vaccine (#1) 2025 Dental Prophylaxis 03/06/2025 09/02/2024, 0 01/23/2024, 05/28/2023, Additional history exists Tobacco Screening 11/18/2025 11/18/2024 Zoster Vaccines (1 of 2) 10/07/2037 RSV [...] patient's age to complete this topic Meningococcal B Vaccine Aged Out No l onger eligible based on patient's age to complete this topic Meningococcal Vaccine Aged Out No surinder claribel eligible based on patient's age to complete this topic Pneumococcal Vaccine: Pediatrics (0 to 5 Years) and At-Risk Patients (6 to 49) Years Aged Out No longer eligible based on patient's age to complete this topic RSV under 20 months Aged Out No longe r eligible based on patient's age to complete this topic Rotavirus Vaccines Aged Out No longer eligible based on patient's age to complete this topic Procedures Procedure Name Priority Date/Time Associated Diagnosis Comments 31,18,19 MANDIBULAR PARTIAL DENTURE - RESIN BASE (INCLUDING, RETENTIVE/CLASPING MATERIALS, RESTS, AND TEETH) Routine 11/18/2024 1:00 PM EDT 4,5,13 MAXILLARY PARTIAL DENTURE - RESIN BASE (INCLUDING, RETENTIVE/CLASPING MATERIALS, RESTS, AND TEETH) Routine 11/18/2024 1:00 PM EDT CASE PRESENTATION, DETAILED AND EXTENSIVE TREATMENT PLANNING Routine 11/02/2024 1:30 PM EDT WAX TRY IN Routine 11/02/2024 1:30 PM EDT PROPHYLAXIS - ADULT Routine 09/02/2024 1 1:00 AM EST BITEWINGS - 4 RADIOGRAPHIC IMAGES Routine 01/23/2024 1:00 PM EDT PERIODIC ORAL EVALUATION - ESTABLISHED PATIENT Routine 01/09/2023 4:00 PM EDT PANORAMIC RADIOGRAPHIC IMAGE Routine 04/06/2021 12:00 AM EDT from Last 3 Months or Most Recently Relevant to Health Maintenance Insurance [facility] MEDICAID STAND ADULT
--- OUTSIDE RECORDS SUMMARY | 2025-01-26 16:29 | XMS_ITS ---
Author Name [facility] Organization Unknown Care Team Organization Name Specialty Phone Email Start Date End Da te [facility] Jonn Godwin DO Primary Care 05/08/202201/29
== END 2025-01-26 17:00 | disposition home or self-care (01) ==
LOC: HO.HMCFM 15:47
PROVIDERS: PCP Family Medicine; Visit Provider Family Medicine
DX: R31.9 Hematuria, unspecified (principal); M54.9 Dorsalgia, unspecified; Z87.442 Personal history of urinary calculi; L91.8 Other hypertrophic disorders of the skin; L30.9 Dermatitis, unspecified

== ENCOUNTER → 2025-01-26 15:47 | Outpatient (BNVA) | payer OTHER, SELFPAY | PROVIDERS: PCP Family Medicine; Visit Provider Family Medicine | DX: M54.9 Dorsalgia, unspecified (principal); R31.9 Hematuria, unspecified; L91.8 Other hypertrophic disorders of the skin; L30.9 Dermatitis, unspecified; Z87.442 Personal history of urinary calculi | CPT/HCPCS: 99212 ==

== ENCOUNTER 2025-06-08 11:20 | Outpatient (AMB) | payer OTHER, SELFPAY ==
[2025-06-08 11:52] VITALS: BP 112/70; PULSE 86; TEMP 36.7; O2SAT 98; BMI 23.4
--- NOTE | 2025-06-08 11:52 | AM.OFFWIN_ITS ---
Intake Vital Signs 06/08/25 11:52 Height 5 ft 11 in Weight 168 lb BMI 23.4 BP 112/70 Blood Pressure Location Lt brachial Position Sitting Pulse 86 Pulse Source Pulse Oximeter Temp 98.0 F Temp Source Oral Pulse Oximetry (%) 98 Oxygen Delivery Method Room Air Intake Visit Reasons: EP nasal swelling pressure Intake Note: pt presents with sinus congestion, swelling and pressure x2 month- Sudafed nasal is helpful when using as a maintenance Patient Tobacco Use Status: Former Tobacco user Allergies No Known Allergies Allergy (Verified 06/08/25 11:53) Do you need a note to return to daycare/school/sports/work: No HPI HPI Comments History of Present Illness Details History of Present Illness - The patient is a 39-year-old male pres enting for evaluation of nasal congestion. - He reports having trouble breathing th rough his nose for the past two months and is dependent on a nasal spray for relief. - He describes associated thick, clear m ucus and pressure in his eyes. - He has experienced nosebleeds from blo wing his nose too frequently. - The patient denies any pain or pressur e in his ears or throat, sinus pain, headache, fever, chills, or soreness. - Previously, he visited the [facility] ER where he was given a nasal spray similar to Flonase, ibuprofen, and Tylenol, which provided some relief. - He also tried a saline nasal flush and Benadryl without success. - Regarding his social history, he quit using cannabis five months ago and denies any current cocaine use, though he reports using it for about a month years ago. - He denies CP, SOB, sore throat or coug h. - He has no sick contacts. Physical Exam General: Cooperative, healthy appearing, comfortable, no acute distress and well developed Orientation: Patient oriented x3 Limitations: No limitations Head: Normal to inspection Ears: Hearing grossly normal bilaterally. TMs visualized. Nose: Difficulty breathing out of the nose. Erythema noted in the turbinates. No blood noted. No masses noted. No blue color noted. Face and sinus: Normal facial exam, no pain or pressure in sinuses Eyes: Appearance normal, both eyes and all related structures Neck: Normal visual inspection and Yes full ROM. No lymphadenopathy noted. Respiratory: Normal respiratory effort and able to speak in complete sentences. Clear to auscultation bilaterally. No w/r/r noted. Cardiovascular: Regular rate and rhythm. Normal S1 and S2. No m/r/g noted Skin: No rashes or lesions noted Patient was informed and verbally consented to the use of an ambient scribe for clinic note documentation during this visit. 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 Current occupational exposures/hazards: Yes Cognitive needs: No Hearing needs: No Vision needs: No Review of Systems Const All systems reviewed & are unremarkable except as noted in HPI and below Physical Exam Vital Signs: Last Vital Signs Temp 98.0 F 06/08/25 11:52 Pulse 86 06/08/25 11:52 BP 112/70 06/08/25 11:52 Pulse Ox 98 06/08/25 11:52 Oxygen Delivery Method Room Air 06/08/25 11:52 BMI result Body Mass Index 23.4 Assessment & Plan Assessment & Plan (1) Nasal congestion: Code(s): R09.81 - Nasal congestion Plan Most likely Chronic Nasal Congestion due to polyps vs adenoids vs allergic rhinitis vs sinusitis vs overuse of decongestants plan - The patient's two-month history of severe nasal obstruction warrants further investigation. - The differential diagnosis includes nasal polyps or inflamed adenoids. - Plan includes sending prescriptions for two medications to the pharmacy, one of which is a new prescription nasal spray. - The patient was advised not to take his current [id number] spray concurrently with the new prescription. - A referral will be placed for an evaluation by an Ear, Nose, and Throat (ENT) specialist to investigate for potential polyps or other underlying causes. Orders: Referrals Ear/Nose/Throat Referral R09.81 - Nasal congestion Medications: New cetirizine-pseudoephedrine 5-120 mg ER 1 tab PO BID 14 tabs 0RF 7 days fluticasone propionate 50 mcg/actuation administer into each nostril 1 spray intranasal Q12H 16 grams 0RF Coding Level of Care Code Est Pt Level 3 (50705) Diagnoses Nasal congestion R09.81
== END 2025-06-08 12:39 | disposition home or self-care (01) ==
PROVIDERS: PCP Family Medicine; Visit Provider Physician Assistant Medical
DX: R09.81 Nasal congestion (principal)

== ENCOUNTER → 2025-06-08 11:20 | Outpatient (BNVA) | payer OTHER, SELFPAY | PROVIDERS: PCP Family Medicine; Visit Provider Physician Assistant Medical | DX: R09.81 Nasal congestion (principal) | CPT/HCPCS: 99212 ==